=== PATIENT | male | born 1990 | race Caucasian/White ===

== ENCOUNTER 2017-12-22 02:42 | Emergency (ER) | payer OTHER ==
[~2017-12-22] VITALS: Ht 182.9 cm; Wt 91.0 kg
[2017-12-22 07:06] VITALS: BP 116/59
== END 2017-12-22 05:45 | disposition home or self-care (01) ==
LOC: EME 02:42
PROC: 0HQ0XZZ Repair Scalp Skin, External Approach (ICD-10-PCS; principal; 2017-12-22)
DX: S01.01XA Laceration without foreign body of scalp, initial encounter (principal); S09.90XA Unspecified injury of head, initial encounter; W01.198A Fall on same level from slipping, tripping and stumbling with subsequent striking against other object, initial encounter; Y92.481 Parking lot as the place of occurrence of the external cause; F10.129 Alcohol abuse with intoxication, unspecified; R03.0 Elevated blood-pressure reading, without diagnosis of hypertension; Z72.0 Tobacco use
CPT/HCPCS: 99281; 99285